=== PATIENT | female | born 1985 | race African-American/Black ===

== ENCOUNTER 2017-09-13 14:12 | Emergency (ER) | payer OTHER ==
[~2017-09-13] VITALS: Ht 160 cm; Wt 122.0 kg
[~2017-09-13 14:12] MED LIST: ALEVE220 MG; CIPRO500 MG PO; IBUPROFEN600 MG PO; LORTAB 7.57.5 MG PO; LORTAB5 PO; NAPROSYN500 MG OR; PRE-NATAL PO; PRILOSEC20 MG/CAP PO
[2017-09-13] MEDS ORDERED: CEPHALEXIN500 M1 PO (14:52)
[2017-09-13] MEDS ORDERED: MUPIROCIN2 % EX (14:52)
[2017-09-13] MEDS ORDERED: BACTRIM DS1 TAB PO (14:52)
[2017-09-13 14:55] VITALS: BP 160/97
== END 2017-09-13 15:00 | disposition home or self-care (01) | DRG 776 ==
LOC: ED 14:12
DX: O86.0 Infection of obstetric surgical wound (principal)

== ENCOUNTER 2019-07-26 | Emergency (ER) | payer MEDICAID ==
[~2019-07-26] MED LIST changes: +BACTRIM DS1 TAB PO; +CEPHALEXIN500 M1 PO; -IBUPROFEN600 MG PO; +MOTRIN800 MG PO; +MUPIROCIN2 % EX
[2019-07-26] MEDS ORDERED: FLEXERIL PO (19:05)
[2019-07-26] MEDS ORDERED: MEDDOSEPAK PO (19:05)
== END 2019-07-26 19:37 | disposition home or self-care (01) | DRG 552 ==
DX: M54.41 Lumbago with sciatica, right side (principal); F17.210 Nicotine dependence, cigarettes, uncomplicated

== ENCOUNTER 2019-10-08 | Emergency (ER) | payer SELFPAY ==
[~2019-10-08] MED LIST changes: +FLEXERIL PO; +MEDDOSEPAK PO
== END 2019-10-08 15:10 | disposition home or self-care (01) | DRG 552 ==
DX: M54.41 Lumbago with sciatica, right side (principal); F17.210 Nicotine dependence, cigarettes, uncomplicated